=== PATIENT | male | born 1950 | race Caucasian/White ===

== ENCOUNTER 2019-10-08 12:09 | Day surgery (SDC) | payer MEDICARE ==
[~2019-10-08] VITALS: Ht 175.3 cm; Wt 68.2 kg
[2019-10-08] MEDS ORDERED: normal saline 1000ml 1,000 ML IV SCH ×2 (12:35→14:57)
[2019-10-08 13:00] VITALS: BP 110/53
[2019-10-08] MEDS ORDERED: LISI-604 PO (13:33)
[2019-10-08] MEDS ORDERED: METO25TA6 PO (13:34)
[2019-10-08] MEDS ORDERED: ROSU40TA PO (13:35)
[2019-10-08] MEDS ORDERED: SPIR25TA5 PO (13:36)
[2019-10-08] MEDS ORDERED: FLO0.4C PO (13:37)
[2019-10-08] MEDS ORDERED: ALBU18HF2 INH (13:38)
[2019-10-08] MEDS ORDERED: ALB0.5UD IH (13:38)
[2019-10-08] MEDS ORDERED: DEC4T PO (13:40)
[2019-10-08] MEDS ORDERED: METH500C6 PO (13:41)
[2019-10-08] MEDS ORDERED: FURO-150 PO (13:43)
[2019-10-08] MEDS ORDERED: fentaNYL/PF 50MCG/1 ML 2ML syringe ONE (13:49)
[2019-10-08] MEDS ORDERED: midazolam 2 mg/2 ml injection ONE (13:49)
[2019-10-08] MEDS ORDERED: LIDOcaine 1%/PF 5ML 10 MG/ML VIAL ONE (13:58)
[2019-10-08] MEDS ORDERED: heparin sodium, porcine/PF 100unit/ml 5ML syringe ONE (13:58)
[2019-10-08] MEDS ORDERED: LIDOcaine/PRILOcaine 5gm cream TP ONE (14:07)
[2019-10-08 14:57] VITALS: BP 124/56
[2019-10-08 15:15] VITALS: BP 116/53
[2019-10-08 15:30] VITALS: BP 107/58
[2019-10-08 15:45] VITALS: BP 115/64
== END 2019-10-08 16:00 | disposition home or self-care (01) ==
LOC: SSTAY O 12:09
PROVIDERS: ATTEND Radiology Vascular & Interventional Radiology
DX: C34.12 Malignant neoplasm of upper lobe, left bronchus or lung (principal); C78.7 Secondary malignant neoplasm of liver and intrahepatic bile duct; J44.9 Chronic obstructive pulmonary disease, unspecified; I10 Essential (primary) hypertension; F31.9 Bipolar disorder, unspecified; I48.91 Unspecified atrial fibrillation; F41.9 Anxiety disorder, unspecified; Z87.891 Personal history of nicotine dependence; Z86.73 Personal history of transient ischemic attack (TIA), and cerebral infarction without residual deficits; Z88.0 Allergy status to penicillin; Z79.899 Other long term (current) drug therapy; Z80.0 Family history of malignant neoplasm of digestive organs; Z83.6 Family history of other diseases of the respiratory system
CPT/HCPCS: 36561; 76937; 77001; 99152; 99153; C1788; C1894; J1642; J2250; J3010